=== PATIENT | male | born 1940 | race Caucasian/White ===

== ENCOUNTER 2024-01-06 18:24 | Emergency (ER) | payer MEDICARE ==
[2024-01-06] MEDS: Lidocaine 1% 5 ML VIAL INJECT ONE (22:14)
[2024-01-06] MEDS: Bacitracin Oint 1 GM U/D Packet TOP ONE (22:14)
[2024-01-06] MEDS: Diphtheria,Pertussis(Acell),Tetanus Vaccine 0.5 ML Syringe IM ONE (22:14)
== END 2024-01-06 22:25 | disposition home or self-care (01) ==
LOC: JP.ED 18:24
DX: S61.213A Laceration without foreign body of left middle finger without damage to nail, initial encounter (principal); S61.211A Laceration without foreign body of left index finger without damage to nail, initial encounter; E78.00 Pure hypercholesterolemia, unspecified; Z90.49 Acquired absence of other specified parts of digestive tract; Z87.891 Personal history of nicotine dependence; Z23 Encounter for immunization
CPT/HCPCS: 12002; 90471; 90715; 99282-25